=== PATIENT | female | born 1975 | race African-American/Black ===

== ENCOUNTER 2016-03-20 18:23 | Emergency (ER) | payer MEDICAID ==
[~2016-03-20] VITALS: Ht 157.5 cm; Wt 64.4 kg
[~2016-03-20 18:23] MED LIST: AUGMENTIN 875-1 EAC1 ORAL; CLINDAMYCIN HC300 MG ORAL; IBUPROFEN600 MG ORAL; IBUPROFEN800 MG ORAL; KEFLEX500 MG ORAL; NKM; NORCO 5-325 TA1 EACH ORAL; PERCOCET 5-3251 EACH ORAL; ROBAXIN-750750 MG PO
[2016-03-20 18:33] VITALS: BP 127/91
[2016-03-20] MEDS ORDERED: NKM (18:34)
[2016-03-20] MEDS ORDERED: AMOXICILLIN500 MG ORAL (18:57)
[2016-03-20] MEDS ORDERED: PROMETHAZINE-D118 ML ORAL (18:57)
[2016-03-20 19:08] VITALS: BP 127/91
--- NOTE | 2016-03-20 22:20 | Emergency Room Report ---
History of Present Illness General Chief Complaint: Upper Respiratory Illness Source: Patient Present Illness HPI The patient is a 40-year-old female presenting with sore throat, cough, and subjective fevers which all began yesterday. The patient denies any sick contacts or recent travel. Pain is described as an 8/10 dull ache to the throat and does not radiate. Pain worse with swallowing. The patient denies any other symptoms including chills, night sweats, headache, neck pain or stiffness, rash, shortness of breath, chest pain Allergies: Coded Allergies: No Known Allergies (Unverified , 04/03/13) Patient History Past Medical History: see triage record Pertinent Family History: none Last Menstrual Period: 03/16/2015 : 3 Para: 3 Reviewed Nursing Documentation: PMH: Agreed, PSxH: Agreed Nursing Documentation-PMH Past Medical History: No Stated History Review of Systems All Other Systems: negative except mentioned in HPI Physical Exam Vital Signs Date Time Temp Pulse Resp B/P Pulse Ox O2 Delivery O2 Flow Rate FiO2 03/20/16 18:28 98.2 67 16 127/91 100 Room Air Sp02 EP Interpretation: reviewed, normal General Appearance: no apparent distress, alert, GCS 15, non-toxic Head: normocephalic, atraumatic Eyes: bilateral eye PERRL, bilateral eye normal inspection ENT: hearing grossly normal, no angioedema, normal voice, TMs + canals normal, tonsillar swelling, pharyngeal erythema, tonsillar exudate Neck: full range of motion, supple/symm/no masses Respiratory: chest non-tender, lungs clear, normal breath sounds, no wheezing, speaking full sentences Cardiovascular #1: regular rate, rhythm, no edema Gastrointestinal: normal bowel sounds, non tender, soft, non-distended, no guarding, no rebound Musculoskeletal: back normal, gait/station normal, normal range of motion, non- tender Neurologic: alert, oriented x3, responsive, motor strength/tone normal, sensory intact, speech normal Psychiatric: judgement/insight normal, memory normal, mood/affect normal, no suicidal/homicidal ideation Skin: normal color, no rash, warm/dry, well hydrated Lymphatic: adenopathy Medical Decision Making PA Attestation Dr. Hallman is my supervising physician. Patient management was discussed with my supervising physician Diagnostic Impression: Primary Impression: Pharyngitis, acute ER Course The patient is a 40-year-old female presenting with sore throat, cough, and fevers Differential diagnosis include but not limited to pharyngitis, sinusitis, AOM, bronchitis, PNA Physical exam: Vitals within normal limits. Afebrile. No apparent distress HEENT exam: There is bilateral constant edema, erythema, and exudate. Uvula midline. Moist mucous membranes. There is bilateral cervical lymphadenopathy. Lungs are clear to auscultation bilaterally Skin is warm and dry. No rash The patient will be discharged home with a prescription for amoxicillin and is given ER precautions. Patient will followup with primary care Last Vital Signs Date Time Temp Pulse Resp B/P Pulse Ox O2 Delivery O2 Flow Rate FiO2 03/20/16 19:08 67 16 127/91 100 Room Air 03/20/16 18:33 98.2 Status: improved Disposition: HOME, SELF-CARE Condition: Improved Scripts D-Methorphan Hb/Prometh Hcl* (PROMETHAZINE-DM SYRUP*) 118 Ml Syrup 5 ML ORAL Q6H Y for For Cough, #118 ML 0 Refills Prov: MICHEL JUDD 03/20/16 Amoxicillin* (AMOXIL*) 500 Mg Capsule 500 MG ORAL Q12HR, #20 CAP Prov: MICHEL JUDD 03/20/16 Ref[facility] ([facility]P) Patient Instructions: Pharyngitis Additional Instructions: I discussed my findings with the patient. All questions and concerns have been answered. Treatment and medication compliance have been addressed. I advised the patient that they need to follow up with PMD in 3-5 days. Return to ED if pain remains or worsens, cough worsens or remains, you notice blood in your sputum, you notice wheezing, you experience a fever, or if needed for any reason. Patient verbalized understanding of discharge instructions. MICHEL JUDD Mar 20, 2016 22:20
== END 2016-03-20 19:09 | disposition home or self-care (01) ==
LOC: EMR 19:05
DX: J02.9 Acute pharyngitis, unspecified (principal)
CPT/HCPCS: 99284

== ENCOUNTER 2016-04-04 10:11 | Emergency (ER) | payer MEDICAID ==
[~2016-04-04] VITALS: Ht 154.9 cm; Wt 64.9 kg
[~2016-04-04 10:11] MED LIST changes: +AMOXICILLIN500 MG ORAL; +PROMETHAZINE-D118 ML ORAL
[2016-04-04] MEDS ORDERED: Acetaminophen 500mg (ES) tab ORAL ONE (11:30)
[2016-04-04] MEDS ORDERED: guaiFENesin DM 100mg/5ml ORAL ONE (11:30)
[2016-04-04] MEDS ORDERED: ACETAMINOPHEN500 M3 ORAL (12:27)
[2016-04-04] MEDS ORDERED: ROBITUSSIN LON118 ML PO (12:27)
[2016-04-04] MEDS ORDERED: TRAMADOL HCL50 MG ORAL (12:27)
[2016-04-04 13:03] VITALS: BP 103/53
--- NOTE | 2016-04-04 15:58 | Emergency Room Report ---
History of Present Illness General Chief Complaint: Dyspnea/Respdistress Source: Patient Present Illness HPI 4-year-old, producing healthy woman complaining of cough, fevers and chills, malaise and feeling poorly. Nonproductive cough. Sick adolescent also at home for which she's also brought in for evaluation. Patient is moved into a new partner for which she states the conditions are poor and she is concerned that the apartment is causing her illness. She is a part-time smoker. Allergies: Coded Allergies: No Known Allergies (Unverified , 04/03/13) Patient History Past Medical History: see triage record Social History: Reports: smoking Last Menstrual Period: unknown Now: No Immunizations: UTD Nursing Documentation-PMH Past Medical History: No Stated History Review of Systems Constitutional: Reports: malaise, weakness Respiratory: Reports: cough, Denies: shortness of breath Genitourinary: Denies: discharge All Other Systems: negative except mentioned in HPI Physical Exam Vital Signs Date Time Temp Pulse Resp B/P Pulse Ox O2 Delivery O2 Flow Rate FiO2 04/04/16 10:31 98.1 56 16 120/75 97 Room Air Sp02 EP Interpretation: reviewed, normal General Appearance: no apparent distress, alert, GCS 15, thin Head: atraumatic Eyes: bilateral eye normal inspection ENT: normal ENT inspection, hearing grossly normal, normal voice Neck: normal inspection, full range of motion, supple, no bony tend Respiratory: normal inspection, lungs clear, normal breath sounds, no respiratory distress, no retraction, no wheezing Cardiovascular #1: regular rate, rhythm, no edema Gastrointestinal: normal inspection, normal bowel sounds, non tender, soft, no guarding, no hernia Genitourinary: no CVA tenderness Musculoskeletal: normal inspection, back normal, normal range of motion Neurologic: normal inspection, alert, responsive, speech normal Psychiatric: normal inspection, judgement/insight normal, mood/affect normal Skin: normal inspection, normal color, no rash Medical Decision Making Diagnostic Impression: Primary Impression: Upper respiratory infection, acute Additional Impression: Upper respiratory infection ER Course Patient is overall well-appearing, though she does appear to be tired and is likely suffering from URI. Chest x-ray is unremarkable. Vitals are stable in the ER. And her son is also well-appearing. He she'll be given medications for cough as well as fever and malaise to include Tylenol and Robitussin. To followup with primary doctor and recommended to abstain from smoking. Chest X-Ray Diagnostic Results Time: 12:00 EP Interpretation: No Findings: no consolidation, no effusion, no pneumothorax, no acute cardiopulmonary disease Number of Views: 1 Reevaluation Time: 12:30 Last Vital Signs Date Time Temp Pulse Resp B/P Pulse Ox O2 Delivery O2 Flow Rate FiO2 04/04/16 13:03 86 18 103/53 98 Room Air 04/04/16 13:02 98.0 Status: improved Disposition: HOME, SELF-CARE Condition: Stable Scripts Acetaminophen* (ACETAMINOPHEN EXTRA STRENGTH*) 500 Mg Tablet 1000 MG ORAL Q8H Y for Fever/Headache/Mild Pain, #30 TAB Prov: Salvador Tomas MD 04/04/16 Dextromethorphan Hbr/Chlor-Mal (ROBITUSSIN LONG-ACTING LIQ) 118 Ml Liquid 118 ML PO EVERY 6 HOURS for 10 Days, #100 ML Prov: Salvador Tomas MD 04/04/16 Tramadol Hcl* (ULTRAM*) 50 Mg Tablet 50 MG ORAL Q6H Y for For Pain, #15 TAB 0 Refills Prov: Salvador Tomas MD 04/04/16 Patient Instructions: Upper Respiratory Infection, Adult Additional Instructions: Please rest, take medications as prescribed, followup with primary DrRoland, please avoid smoking. Salvador Tomas MD Apr 04, 2016 15:58
--- NOTE | 2016-04-05 07:56 | Diagnostic Imaging Report ---
Indication: Dyspnea Comparison: 11/18/09 2 views of the chest obtained. Findings: Cardiomediastinal silhouette and pulmonary vascularity are within normal limits for age. The diaphragmatic contour is smooth and costophrenic angles are sharp. No pleural effusions are identified. The bones are unremarkable. Impression: No acute disease
== END 2016-04-04 13:09 | disposition home or self-care (01) ==
LOC: EMR 11:20
DX: J06.9 Acute upper respiratory infection, unspecified (principal); F17.200 Nicotine dependence, unspecified, uncomplicated
CPT/HCPCS: 71020; 99284

== ENCOUNTER 2016-05-19 20:58 | Emergency (ER) | payer MEDICAID ==
[~2016-05-19] VITALS: Ht 162.6 cm; Wt 63.5 kg
[~2016-05-19 20:58] MED LIST changes: +ACETAMINOPHEN500 M3 ORAL; +ROBITUSSIN LON118 ML PO; +TRAMADOL HCL50 MG ORAL
[2016-05-19 21:00] VITALS: BP 153/87
--- NOTE | 2016-05-19 21:17 | Emergency Room Report ---
History of Present Illness General Chief Complaint: Alcohol Intoxication Source: Patient, EMS Present Illness HPI Is a 40-year-old female brought in by EMS for altered mental status. She was found sleeping on somebody's lawn. She told EMS that she's been drinking. She told me that she was using PCP. She did not know what happened. There is no trauma. Patient denies suicidal thought homicidal thought. No other complaint. Allergies: Coded Allergies: No Known Allergies (Unverified , 04/03/13) Patient History Past Medical History: see triage record, old chart reviewed Past Surgical History: none Pertinent Family History: none Social History: Reports: alcohol use, drug use Last Menstrual Period: Unknown Now: No Immunizations: other Reviewed Nursing Documentation: PMH: Agreed, PSxH: Agreed Nursing Documentation-PMH Past Medical History: No Stated History Review of Systems Eye: Denies: blurred vision, eye pain ENT: Denies: ear pain, nose congestion, throat swelling Respiratory: Denies: cough, shortness of breath Cardiovascular: Denies: chest pain, palpitations Gastrointestinal: Denies: abdominal pain, diarrhea, nausea, vomiting Musculoskeletal: Denies: back pain, joint pain Skin: Denies: rash Neurological: Denies: headache, numbness Endocrine: Denies: increased thirst, increased urine Hematologic/Lymphatic: Denies: easy bruising All Other Systems: negative except mentioned in HPI Physical Exam Vital Signs Date Time Temp Pulse Resp B/P Pulse Ox O2 Delivery O2 Flow Rate FiO2 05/19/16 20:54 98.1 72 18 160/100 98 Room Air vitals with hypertension Sp02 EP Interpretation: reviewed, normal General Appearance: well appearing, no apparent distress, alert Head: normocephalic, atraumatic Eyes: bilateral eye EOMI, bilateral eye PERRL ENT: hearing grossly normal, normal pharynx Neck: full range of motion, supple, no meningismus Respiratory: chest non-tender, lungs clear, normal breath sounds Cardiovascular #1: regular rate, rhythm, no murmur Gastrointestinal: normal bowel sounds, non tender, no mass, no organomegaly, no bruit, non-distended Musculoskeletal: back normal, gait/station normal, normal range of motion Psychiatric: mood/affect normal Skin: warm/dry Medical Decision Making Diagnostic Impression: Primary Impression: Acute alcoholic intoxication Qualified Codes: F10.120 - Alcohol abuse with intoxication, uncomplicated Additional Impression: PCP abuse ER Course Patient present with altered mental status secondary to alcohol and drug abuse. She's now awake and walking around without any difficulty. Speech is clear. We'll discharge home to Last Vital Signs Date Time Temp Pulse Resp B/P Pulse Ox O2 Delivery O2 Flow Rate FiO2 05/19/16 20:54 98.1 72 18 160/100 98 Room Air Status: improved Disposition: HOME, SELF-CARE Condition: Stable Additional Instructions: Followup with your Dr. in 7 days. Abstain from drugs and alcohol. Return if symptom worsen. ROSENDA SIDDIQI M.D. May 19, 2016 21:17
[2016-05-19 21:20] VITALS: BP 160/100
== END 2016-05-19 21:20 | disposition home or self-care (01) ==
LOC: EDBD 20:58 → EMR 21:19
DX: F10.120 Alcohol abuse with intoxication, uncomplicated (principal); F16.10 Hallucinogen abuse, uncomplicated
CPT/HCPCS: 99283

== ENCOUNTER 2017-10-07 00:06 | Emergency (ER) | payer MEDICAID ==
[~2017-10-07] VITALS: Ht 154.9 cm; Wt 66.2 kg
[2017-10-07 00:26] VITALS: BP 129/91
[2017-10-07] MEDS ORDERED: BACTRIM DS TAB1 EAC1 ORAL (00:27)
[2017-10-07] MEDS ORDERED: MUPIROCIN22 GM TOPIC (00:27)
--- NOTE | 2017-10-07 00:27 | Emergency Room Report ---
History of Present Illness General Chief Complaint: Skin Rash/Abscess Source: Patient Present Illness HPI Is a 41-year-old female with a history of alcohol and PCP abuse. She presents with chief complaint of a rash and questionable bug bite for a week. No drainage. Very itching. No nausea no vomiting. No fever chills. Scratching made it worse. Denies any other complaint. No skin popping. No IV drug use. Allergies: Coded Allergies: No Known Allergies (Unverified , 04/03/13) Patient History Past Medical History: see triage record, old chart reviewed Past Surgical History: other Pertinent Family History: none Social History: Reports: alcohol use, drug use Last Menstrual Period: UNK Now: No Immunizations: other Reviewed Nursing Documentation: PMH: Agreed; PSxH: Agreed Nursing Documentation-PMH Past Medical History: No Stated History Review of Systems Eye: Denies: eye pain, blurred vision ENT: Denies: ear pain, nose congestion, throat swelling Respiratory: Denies: cough, shortness of breath Cardiovascular: Denies: chest pain, palpitations Gastrointestinal: Denies: abdominal pain, diarrhea, nausea, vomiting Musculoskeletal: Denies: back pain, joint pain Skin: Reports: rash Neurological: Denies: headache, numbness Endocrine: Denies: increased thirst, increased urine Hematologic/Lymphatic: Denies: easy bruising All Other Systems: negative except mentioned in HPI Physical Exam Vital Signs Date Time Temp Pulse Resp B/P (MAP) Pulse Ox O2 Delivery O2 Flow Rate FiO2 10/07/17 00:07 98.1 88 16 129/91 95 Room Air 98.1 vitals normal Sp02 EP Interpretation: reviewed, normal General Appearance: well appearing, no apparent distress, alert Head: normocephalic, atraumatic Eyes: bilateral eye PERRL, bilateral eye EOMI ENT: hearing grossly normal, normal pharynx Neck: full range of motion, supple, no meningismus Respiratory: chest non-tender, lungs clear, normal breath sounds Cardiovascular #1: regular rate, rhythm, no murmur Gastrointestinal: normal bowel sounds, non tender, no mass, no organomegaly, no bruit, non-distended Musculoskeletal: back normal, gait/station normal, normal range of motion Neurologic: alert, oriented x3, responsive Psychiatric: mood/affect normal Skin: warm/dry, rash - Scattered area of erythema central ulceration. Surrounding erythema. No abscess. Medical Decision Making Diagnostic Impression: Primary Impression: Cellulitis, unspecified Qualified Codes: L03.90 - Cellulitis, unspecified Additional Impression: Drug abuse ER Course Patient with cellulitis. No abscess. No necrotizing fasciitis. Was likely MRSA. We'll discharge home. Last Vital Signs Date Time Temp Pulse Resp B/P (MAP) Pulse Ox O2 Delivery O2 Flow Rate FiO2 10/07/17 00:07 98.1 88 16 129/91 95 Room Air 98.1 Status: improved Disposition: HOME, SELF-CARE Condition: Stable Scripts Mupirocin* (MUPIROCIN*) 22 Gm Oint...g. 1 APPLIC TOPIC THREE TIMES A DAY, #22 GM Prov: ROSENDA SIDDIQI M.D. 10/07/17 Trimethoprim/Sulfamethoxazole 160/800* (BACTRIM DS TABLET*) 1 Each Tablet 1 TAB ORAL Q12H, #14 TAB 0 Refills Prov: ROSENDA SIDDIQI M.D. 10/07/17 Referrals: [facility] (PCP) Additional Instructions: Clean area first with hydrogen peroxide. Then apply antibiotic ointment. Follow-up your DrRoland in 2-3 days for recheck. Return if symptom worsen. ROSENDA SIDDIQI M.D. Oct 07, 2017 00:27
[2017-10-07] MEDS ORDERED: Bactrim-DS 1 tab ORAL ONE (00:30)
[2017-10-07 00:37] VITALS: BP 129/91
== END 2017-10-07 00:39 | disposition home or self-care (01) ==
LOC: EMR 00:22
DX: L03.90 Cellulitis, unspecified (principal)
CPT/HCPCS: 99283

== ENCOUNTER 2018-09-28 11:32 | Emergency (ER) | payer MEDICAID ==
[~2018-09-28] VITALS: Ht 154.9 cm; Wt 70.3 kg
[~2018-09-28 11:32] MED LIST changes: +BACTRIM DS TAB1 EAC1 ORAL; +MUPIROCIN22 GM TOPIC
[2018-09-28 11:36] VITALS: BP 103/73
[2018-09-28] MEDS ORDERED: NKM (11:40)
--- NOTE | 2018-09-28 11:49 | NUR ---
ED Nurse Note: pt walked in to ED with family member due to swelling on left wrist and blister on face after she took metronidazole yesterday. denies any sob or throat irritation. per pt, she in on antibiotic for UTI. and had that meds before. pt also c/o tingling sensation on left arm for couple days. no recent injury. AAO x4. respirations even and non-labored noted. will wait for the further order.
[2018-09-28] MEDS ORDERED: MEDROL DOSEPAK4 MG ORAL (12:05)
[2018-09-28] MEDS ORDERED: CEPHALEXIN500 MG ORAL (12:05)
[2018-09-28] MEDS ORDERED: BENADRYL25 MG ORAL (12:05)
[2018-09-28] MEDS ORDERED: Cephalexin 500mg cap ORAL ONE (12:15)
[2018-09-28 12:17] VITALS: BP 103/73
--- NOTE | 2018-09-28 12:18 | NUR ---
ER DISCHARGE NOTE: Patient is cleared to be discharged per ERMD with family member, pt is aox4, on room air, with stable vital signs. pt was given dc and prescription instructions, pt was able to verbalize understanding, pt id band removed without complications. pt is able to ambulate with steady gait. pt took all belongings.
--- NOTE | 2018-09-28 13:02 | Emergency Room Report ---
History of Present Illness General Chief Complaint: Skin Rash/Abscess Source: Patient Present Illness HPI Patient presents with complaints of several areas of skin markings more specifically left forearm Left upper neck area patient reports that the area is very itchy in nature Denies any fevers or chills denies any recent travel denies any fevers denies any vomiting or diarrhea Denies any focal weakness denies any headache or photophobia Symptoms ongoing for the past several days and she felt increased itching sensation Allergies: Coded Allergies: METRONIDAZOLE (Verified Allergy, Unknown, 09/28/18) Patient History Past Medical History: see triage record Last Menstrual Period: 09/05/18 Reviewed Nursing Documentation: PMH: Agreed; PSxH: Agreed Nursing Documentation-PMH Past Medical History: No Stated History Review of Systems All Other Systems: negative except mentioned in HPI Physical Exam Vital Signs Date Time Temp Pulse Resp B/P (MAP) Pulse Ox O2 Delivery O2 Flow Rate FiO2 09/28/18 11:36 98.4 62 18 103/73 (83) 98 Room Air Sp02 EP Interpretation: reviewed, normal General Appearance: well appearing, no apparent distress Head: normocephalic, atraumatic Eyes: bilateral eye PERRL, bilateral eye EOMI ENT: hearing grossly normal, normal pharynx, TMs + canals normal, uvula midline Neck: supple Respiratory: lungs clear, normal breath sounds Cardiovascular #1: regular rate, rhythm Gastrointestinal: non tender, soft Musculoskeletal: normal inspection Neurologic: alert, oriented x3, responsive Skin: other - Several areas more specifically left forearm, left upper neck area with a specific mild erythema and raised urticarial area. No obvious fluctuance no dermatomal spread Lymphatic: no adenopathy Medical Decision Making Diagnostic Impression: Primary Impression: insect bite Additional Impression: cellulitis ER Course Areas in question appears to be consistent with insect bites questionable localized area of cellulitis No obvious abscess No obvious shingle presentation and patient will have initial conservative outpatient trial Last Vital Signs Date Time Temp Pulse Resp B/P (MAP) Pulse Ox O2 Delivery O2 Flow Rate FiO2 09/28/18 12:17 98.4 62 18 103/73 98 Room Air Status: improved Disposition: HOME, SELF-CARE Condition: Improved Scripts Diphenhydramine Hcl* (BENADRYL*) 25 Mg Capsule 25 MG ORAL Q8HR PRN for Itching for 7 Days, CAP Prov: Fermin Cruz DO 09/28/18 Methylprednisolone (Methylprednisolone*) 4MG Dspk 4 MG ORAL DIRECTED for 6 Days, #21 EA 0 Refills Day 1: Two tablets before breakfast, one after lunch, one after dinner, and two at bedtime. If started late in the day, take all six tablets at once or divide into two or three doses, unless otherwise directed by prescriber. Day 2: One tablet before breakfast, one after lunch, one after dinner, and two at bedtime Day 3: One tablet before breakfast, one after lunch, one after dinner, and one at bedtime Day 4: One tablet before breakfast, one after lunch, and one at bedtime Day 5: One tablet before breakfast and one at bedtime Day 6: One tablet before breakfast Prov: Fermin Cruz DO 09/28/18 Cephalexin* (KEFLEX*) 500 Mg Capsule 500 MG ORAL EVERY 6 HOURS for 5 Days, CAP Prov: Fermin Cruz DO 09/28/18 Ref[facility]: [facility]) [facility]. [facility] Patient Instructions: Cellulitis, [id number], Insect Bite, [id number] Additional Instructions: Patient is provided with the discharge instructions notified to follow up with primary doctor in the next 2-3 days otherwise return to the er with any worsening symptoms. Please note that this report is being documented using [employer] technology. This can lead to erroneous entry secondary to incorrect interpretation by the dictating instrument. Fermin Cruz DO Sep 28, 2018 13:02
== END 2018-09-28 12:18 | disposition home or self-care (01) ==
LOC: EMR 11:49
DX: S50.862A Insect bite (nonvenomous) of left forearm, initial encounter (principal); S10.96XA Insect bite of unspecified part of neck, initial encounter; L03.90 Cellulitis, unspecified; Z88.8 Allergy status to other drugs, medicaments and biological substances; W57.XXXA Bitten or stung by nonvenomous insect and other nonvenomous arthropods, initial encounter; Y92.9 Unspecified place or not applicable
CPT/HCPCS: 99282

== ENCOUNTER 2018-11-07 14:08 | Emergency (ER) | payer MEDICAID ==
[~2018-11-07] VITALS: Ht 157.5 cm; Wt 69.9 kg
[~2018-11-07 14:08] MED LIST changes: +BENADRYL25 MG ORAL; +CEPHALEXIN500 MG ORAL; +MEDROL DOSEPAK4 MG ORAL
--- NOTE | 2018-11-07 15:41 | Emergency Room Report ---
History of Present Illness General Chief Complaint: Skin Rash/Abscess Source: Patient Present Illness HPI 42-year-old female presents to the emergency department complaining of 4 out of 10 severity burning/itchy rash with erythema, swelling and warmth scattered on the posterior thighs bilaterally as well as in her back. Patient reports she has been having intermittent symptoms x1 month she was previously evaluated and placed on Keflex and steroid taper with no relief. Patient denies fevers or chills she reports no relief with Benadryl either. Patient reports she has a primary care appointment next week. Pt. denies fevers, chills or swollen tender lymph nodes. Denies lesions/rashes elsewhere on the body. Denies new medications or body washes or creams. Denies swelling of the lips, tongue , throat or airway. Denies wheezing, or shortness of breath. Denies recent travel , recent illness or ill contacts. Denies blisters, oral lesions, or sloughing of the skin. reports hx of cocaine and THC use. denies IVDU. Reports being under significant stress, in transition of housing, and recent of her son last year. Pt. is also c/o persistent muscle tightness in the right hamstring x months. She denies appreciable trauma or fall. Allergies: Coded Allergies: No Known Allergies (Unverified , 11/07/18) Patient History Past Medical History: see triage record Past Surgical History: none Pertinent Family History: none Now: No Reviewed Nursing Documentation: PMH: Agreed; PSxH: Agreed Nursing Documentation-PMH Past Medical History: No Stated History Review of Systems All Other Systems: negative except mentioned in HPI Physical Exam Vital Signs Date Time Temp Pulse Resp B/P (MAP) Pulse Ox O2 Delivery O2 Flow Rate FiO2 11/07/18 14:27 97.5 71 19 112/82 (92) 98 Room Air Sp02 EP Interpretation: reviewed, normal General Appearance: no apparent distress, alert, GCS 15, non-toxic Head: normocephalic, atraumatic Eyes: bilateral eye normal inspection, bilateral eye PERRL ENT: hearing grossly normal, no angioedema, normal voice Neck: full range of motion Respiratory: chest non-tender, lungs clear, normal breath sounds, no wheezing, speaking full sentences Cardiovascular #1: regular rate, rhythm Musculoskeletal: back normal, gait/station normal, normal range of motion, non- tender Neurologic: alert, oriented x3, responsive, motor strength/tone normal, sensory intact, normal gait, speech normal, grossly normal Psychiatric: judgement/insight normal Skin: rash - Pt. with three erythematous plaques that are indurated one on each posterior thigh and on on the right upper back. excoriations noted. No blisters or vessicles. appearance of localized allergic reaction. no obivious skin lesions. no crusting or d/c. some induration palpated. Lymphatic: no adenopathy Medical Decision Making PA Attestation Dr. Hallman Is my supervising Physician whom patient management has been discussed with. Diagnostic Impression: Primary Impression: Rash and other nonspecific skin eruption Additional Impression: CELLULITIS, UNSPECIFIED ER Course 42-year-old female presents to the emergency department complaining of 4 out of 10 severity burning/itchy rash with erythema, swelling and warmth scattered on the posterior thighs bilaterally as well as in her back. Patient reports she has been having intermittent symptoms x1 month she was previously evaluated and placed on Keflex and steroid taper with no relief. Patient denies fevers or chills she reports no relief with Benadryl either. Patient reports she has a primary care appointment next week. Pt. denies fevers, chills or swollen tender lymph nodes. Denies lesions/rashes elsewhere on the body. Denies new medications or body washes or creams. Denies swelling of the lips, tongue , throat or airway. Denies wheezing, or shortness of breath. Denies recent travel , recent illness or ill contacts. Denies blisters, oral lesions, or sloughing of the skin. reports hx of cocaine and THC use. denies IVDU. Reports being under significant stress, in transition of housing, and recent of her son last year. Ddx considered but are not limited to cellulitis, scabies, shingles, varicella, dermatitis, urticaria, eczema, tinea, viral exanthem, SJS Vital signs: are WNL, pt. is afebrile H&PE are most consistent with localized inflammatory reactions with secondary cellulitis of the posterior thighs bilaterally and on the upper right side of the back. No evidence to suggest sepsis, impending airway compromise or anaphylaxis. ORDERS: none required at this time, the diagnosis is clinical ED INTERVENTIONS: None required at this time. -I do not identify an emergent condition at this time. With current presentation , pt. is stable for close outpatient follow up and conservative treatment. D/ w pt. to return promptly to ED with worsening or new symptoms.- Pt. verbalizes' understanding and agreement with proposed treatment plan.proposed treatment plan. DISCHARGE: At this time pt. is stable for d/c to home. Will provide printed patient care instructions, and any necessary prescriptions. Care plan and follow up instructions have been discussed with the patient prior to discharge. Last Vital Signs Date Time Temp Pulse Resp B/P (MAP) Pulse Ox O2 Delivery O2 Flow Rate FiO2 11/07/18 14:27 97.5 71 19 112/82 (92) 98 Room Air Disposition: HOME, SELF-CARE Condition: Stable Scripts Diclofenac Sodium (VOLTAREN) 100 Gm Gel..gram. 1 APPLIC TP Q6HR, #100 GM Prov: Kayce Dong 11/07/18 Cetirizine Hcl* (ZYRTEC*) 10 Mg Tablet 10 MG ORAL DAILY, #30 TAB 0 Refills Prov: Kayce Dong 11/07/18 Hydrocortisone 2% Cream (ANTI-ITCH 2% CREAM) Y Cr 1 APPLIC TP Q6HR, #28.3 GM Prov: Kayce Dong 11/07/18 Trimethoprim/Sulfamethoxazole 160/800* (BACTRIM DS TABLET*) 1 Each Tablet 1 TAB ORAL TWICE A DAY for 7 Days, #14 TAB Prov: Kayce Dong 11/07/18 Patient Instructions: Cellulitis, [id number], Rash, [id number] Additional Instructions: Take medications as directed. Follow up with a Primary Care Provider in 3-5 days for DERMATOLOGY REFERRAL , even if your symptoms have resolved. --Please review list of primary care clinics, if you do not already have a primary care provider Return sooner to ED if new symptoms occur, or current symptoms become worse. - Please note that this Emergency Department Report was dictated using [employer] technology software, occasionally this can lead to erroneous entry secondary to interpretation by the dictation equipment. Kayce Dong Nov 07, 2018 15:41
[2018-11-07 15:53] VITALS: BP 112/82
--- NOTE | 2018-11-07 15:54 | NUR ---
ED Nurse Note:pt. came with unknown rash on her back
[2018-11-07] MEDS ORDERED: ZYRTEC10 MG ORAL (16:01)
[2018-11-07] MEDS ORDERED: BACTRIM DS TAB1 EAC1 ORAL (16:01)
[2018-11-07] MEDS ORDERED: ANTI-ITCH28 G1 TP (16:01)
--- NOTE | 2018-11-07 16:10 | NUR ---
ER DISCHARGE NOTE: Patient is cleared to be discharged per ERMD, pt is aox4, on room air, with stable vital signs. pt was given dc and prescription instructions, pt was able to verbalize understanding, pt is able to ambulate with steady gait. pt took all belongings.
[2018-11-07] MEDS ORDERED: VOLTAREN100 G1 TP (16:17)
[2018-11-07 16:41] VITALS: BP 112/82
== END 2018-11-07 16:40 | disposition home or self-care (01) ==
LOC: EMR 15:50
DX: L03.90 Cellulitis, unspecified (principal); R21 Rash and other nonspecific skin eruption
CPT/HCPCS: 99282

== ENCOUNTER 2018-11-11 19:49 | Emergency (ER) | payer MEDICAID ==
[~2018-11-11] VITALS: Ht 157.5 cm; Wt 69.9 kg
[~2018-11-11 19:49] MED LIST changes: +ANTI-ITCH28 G1 TP; +VOLTAREN100 G1 TP; +ZYRTEC10 MG ORAL
[2018-11-11 20:00] VITALS: BP 124/78
--- NOTE | 2018-11-11 20:00 | NUR ---
ED Nurse Note: Patient presents with complaints of cellultitis of the legs and was given an RX for batrim but needs another because it was misplaced. [id number]. vss
[2018-11-11] MEDS ORDERED: BACTRIM DS TAB1 EAC1 ORAL ×2 (20:30→20:34)
[2018-11-11 20:39] VITALS: BP 124/78
--- NOTE | 2018-11-11 20:39 | NUR ---
Note undone in EDM - 11/11/18 at 2040 by LCRISOSTOM ER DISCHARGE NOTE: Patient is cleared to be discharged per ERMD, pt is aox4, on room air, with stable vital signs. accompanied by parent. applied sling; pt states understanding of proper care of injury. pt was given dc and prescription instructions, pt was able to verbalize understanding, pt id band removed. pt is able to ambulate with steady gait. pt took all belongings.
--- NOTE | 2018-11-11 20:40 | NUR ---
ER DISCHARGE NOTE: Patient is cleared to be discharged per ERMD, pt is aox4, on room air, with stable vital signs. pt was given dc and prescription instructions, pt was able to verbalize understanding, pt id band removed. pt is able to ambulate with steady gait. pt took all belongings.
--- NOTE | 2018-11-13 07:24 | Emergency Room Report ---
History of Present Illness General Chief Complaint: Medication Refill Source: Patient Present Illness HPI 42-year-old female presents ED for evaluation. Patient is here for medication refill. Was recently seen in ED and noted to have cellulitis on the legs. Was prescribed Bactrim but states she lost the prescription. Is here for refill of her medication. Denies any pain. Denies any fevers or chills. No other aggravating relieving factors. No other associated symptoms Allergies: Coded Allergies: No Known Allergies (Unverified , 11/07/18) Patient History Past Medical History: none Past Surgical History: none Pertinent Family History: none Social History: Denies: smoking, alcohol use, drug use Last Menstrual Period: 11/02/18 Now: No : 4 Para: 3 Immunizations: UTD Reviewed Nursing Documentation: PMH: Agreed; PSxH: Agreed Review of Systems All Other Systems: negative except mentioned in HPI Physical Exam Vital Signs Date Time Temp Pulse Resp B/P (MAP) Pulse Ox O2 Delivery O2 Flow Rate FiO2 11/11/18 19:58 97.7 54 16 124/78 (93) 98 Room Air Sp02 EP Interpretation: reviewed, normal General Appearance: no apparent distress, alert, GCS 15, non-toxic Head: normocephalic, atraumatic Eyes: bilateral eye normal inspection, bilateral eye PERRL ENT: hearing grossly normal, normal pharynx, no angioedema, normal voice Neck: full range of motion, supple/symm/no masses Respiratory: chest non-tender, lungs clear, normal breath sounds, speaking full sentences Cardiovascular #1: regular rate, rhythm, no edema Cardiovascular #2: 2+ carotid (R), 2+ carotid (L), 2+ radial (R), 2+ radial (L) , 2+ dorsalis pedis (R), 2+ dorsalis pedis (L) Gastrointestinal: normal bowel sounds, non tender, soft, non-distended, no guarding, no rebound Rectal: deferred Genitourinary: normal inspection, no CVA tenderness Musculoskeletal: back normal, gait/station normal, normal range of motion, non- tender Neurologic: alert, oriented x3, responsive, motor strength/tone normal, sensory intact, speech normal Psychiatric: judgement/insight normal, memory normal, mood/affect normal, no suicidal/homicidal ideation Reflexes: 3+ bicep (R), 3+ bicep (L), 3+ tricep (R), 3+ tricep (L), 3+ knee (R) , 3+ knee (L) Skin: normal color Lymphatic: no adenopathy Medical Decision Making Diagnostic Impression: Primary Impression: Encounter for medication refill ER Course 42-year-old female presents to ED refill of her medication. recently prescribed bactrim hospital course: After initial history and physical, reviewed EMR. Patient was seen here recently and prescribed Bactrim. I agreed to provide her with refill of her medication. safe for discharge for close outpatient follow-up Diagnosis-encounter for medication refill Stable and discharged to home with prescription for Bactrim. Followup with PMD. Return to ED if symptoms recur or worsen Last Vital Signs Date Time Temp Pulse Resp B/P (MAP) Pulse Ox O2 Delivery O2 Flow Rate FiO2 11/11/18 20:39 97.7 60 16 124/78 98 Room Air Status: improved Disposition: HOME, SELF-CARE Condition: Stable Scripts Trimethoprim/Sulfamethoxazole 160/800* (BACTRIM DS TABLET*) 1 Each Tablet 1 TAB ORAL TWICE A DAY for 7 Days, #14 TAB Prov: Josue Hart MD 11/11/18 Referrals: [facility] ([facility]P) [facility] Patient Instructions: Medicine Refill at the Emergency Department Josue Hart MD Nov 13, 2018 07:24
== END 2018-11-11 20:40 | disposition home or self-care (01) ==
LOC: EMR 20:14
DX: L03.116 Cellulitis of left lower limb (principal); L03.115 Cellulitis of right lower limb; Z76.0 Encounter for issue of repeat prescription
CPT/HCPCS: 99282

== ENCOUNTER 2019-11-03 20:21 | Emergency (ER) | payer MEDICAID ==
[~2019-11-03] VITALS: Ht 157.5 cm; Wt 72.6 kg
[2019-11-03 20:30] VITALS: BP 116/78
--- NOTE | 2019-11-03 21:55 | Diagnostic Imaging Report ---
EXAM: CT Neck Without Intravenous Contrast CLINICAL HISTORY: Evaluate for foreign body. TECHNIQUE: Axial computed tomography images of the neck without intravenous contrast. CTDI is 14.6 mGy and DLP is 463.6 mGy-cm. One or more of the following dose reduction techniques were used: automated exposure control, adjustment of the mA and/or kV according to patient size, use of iterative reconstruction technique. COMPARISON: No previous studies. FINDINGS: Oropharynx: Unremarkable. No significant tonsillar enlargement. Hypopharynx: See below. Larynx: Valleculae and piriform sinuses are unremarkable. Normal epiglottis. Trachea: Visualized trachea is unremarkable. Retropharyngeal space: Unremarkable. Submandibular/parotid glands: Parotid glands and the submandibular glands are unremarkable. Thyroid: The thyroid gland is grossly unremarkable. Bones/joints: Visualized calvarium is unremarkable. There is straightening and reversal of the curvature of the cervical spine. Degenerative disc disease most notably at the C5-6 level. No acute fracture. Soft tissues: No radiopaque foreign bodies detected. Vasculature: No acute findings. Lymph nodes: No pathologic lymphadenopathy is noted. Mastoid air cells: Mastoid air cells are well pneumatized. Lung apices: Minimal subsegmental atelectasis posteriorly at the lung apices. Other findings: The airways patent. Supra clavicular regions are unremarkable. IMPRESSION: 1. No radiopaque foreign bodies detected. 2. No significant focal abnormality noted. 3. The airways patent. The region of the vallecula and piriform sinuses are unremarkable per 4. Proximal trachea is unremarkable.
[2019-11-03 22:10] VITALS: BP 116/85
--- NOTE | 2019-11-05 07:33 | Emergency Room Report ---
History of Present Illness General Chief Complaint: Sore Throat Source: Patient Present Illness HPI 43-year-old female presents with throat pain. States that tonight she was eating chicken and felt a sharp bone in her throat. Patient pulled out a bone which appeared sharp but is concerned there was another bone stuck in her throat. Pain is dull, 4 out of 10, nonradiating. States she did cough a few times. Denies nausea or vomiting. No other aggravating relieving factors. 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 Patient History Past Medical History: none Past Surgical History: none Pertinent Family History: none Social History: Denies: smoking, alcohol use, drug use Last Menstrual Period: 10/2019 Now: No Immunizations: UTD Reviewed Nursing Documentation: PMH: Agreed; PSxH: Agreed Nursing Documentation-PMH Past Medical History: No Stated History Review of Systems All Other Systems: negative except mentioned in HPI Physical Exam Vital Signs Date Time Temp Pulse Resp B/P (MAP) Pulse Ox O2 Delivery O2 Flow Rate FiO2 11/03/19 20:26 98.4 73 16 116/78 (91) 98 Room Air Sp02 EP Interpretation: reviewed, normal General Appearance: no apparent distress, alert, GCS 15, non-toxic Head: normocephalic, atraumatic Eyes: bilateral eye normal inspection, bilateral eye PERRL ENT: hearing grossly normal, normal pharynx, no angioedema, normal voice Neck: full range of motion, supple/symm/no masses Respiratory: chest non-tender, lungs clear, normal breath sounds, speaking full sentences Cardiovascular #1: regular rate, rhythm, no edema Cardiovascular #2: 2+ carotid (R), 2+ carotid (L), 2+ radial (R), 2+ radial (L), 2+ dorsalis pedis (R), 2+ dorsalis pedis (L) Gastrointestinal: normal bowel sounds, non tender, soft, non-distended, no guarding, no rebound Rectal: deferred Genitourinary: normal inspection, no CVA tenderness Musculoskeletal: back normal, normal range of motion, gait/station normal, non- tender Neurologic: alert, motor strength/tone normal, oriented x3, sensory intact, responsive, speech normal Psychiatric: judgement/insight normal, memory normal, mood/affect normal, no suicidal/homicidal ideation Reflexes: 3+ bicep (R), 3+ bicep (L), 3+ tricep (R), 3+ tricep (L), 3+ knee (R), 3+ knee (L) Lymphatic: no adenopathy Medical Decision Making Diagnostic Impression: Primary Impression: Foreign body sensation in throat ER Course Hospital Course 43-year-old female presents with throat discomfort after swallowing chicken bone Differential diagnoses include: perforation, obstruction, pharyngitis, Clinical course Patient placed on stretcher. After initial history, physical exam reveals a female in no acute distress. Bilateral TM unremarkable. There is no pharyngeal erythema. No stridor. Patient speaking comfortably in full sentences. CT neck shows no evidence of foreign body or perforation. Discussed findings with patient. Reassurance given. Likely sensation noted from chicken bone scratching the throat. Self-limited and will resolve. No further intervention required. Safe for discharge with close outpatient follow-up. Diagnosis -foreign body sensation in throat Stable and discharged home. Instructed to followup with PMD. return to ED if symptoms recur or worsen CT/MRI/US Diagnostic Results CT/MRI/US Diagnostic Results : Imaging Test Ordered: CT neck Impression EXAM: CT Neck Without Intravenous Contrast CLINICAL HISTORY: Evaluate for foreign body. TECHNIQUE: Axial computed tomography images of the neck without intravenous contrast. CTDI is 14.6 mGy and DLP is 463.6 mGy-cm. One or more of the following dose reduction techniques were used: automated exposure control, adjustment of the mA and/or kV according to patient size, use of iterative reconstruction technique. COMPARISON: No previous studies. FINDINGS: Oropharynx: Unremarkable. No significant tonsillar enlargement. Hypopharynx: See below. Larynx: Valleculae and piriform sinuses are unremarkable. Normal epiglottis. Trachea: Visualized trachea is unremarkable. Retropharyngeal space: Unremarkable. Submandibular/parotid glands: Parotid glands and the submandibular glands are unremarkable. Thyroid: The thyroid gland is grossly unremarkable. Bones/joints: Visualized calvarium is unremarkable. There is straightening and reversal of the curvature of the cervical spine. Degenerative disc disease most notably at the C5-6 level. No acute fracture. Soft tissues: No radiopaque foreign bodies detected. Vasculature: No acute findings. Lymph nodes: No pathologic lymphadenopathy is noted. Mastoid air cells: Mastoid air cells are well pneumatized. Lung apices: Minimal subsegmental atelectasis posteriorly at the lung apices. Other findings: The airways patent. Supra clavicular regions are unremarkable. IMPRESSION: 1. No radiopaque foreign bodies detected. 2. No significant focal abnormality noted. 3. The airways patent. The region of the vallecula and piriform sinuses are unremarkable per 4. Proximal trachea is unremarkable. Last Vital Signs Date Time Temp Pulse Resp B/P (MAP) Pulse Ox O2 Delivery O2 Flow Rate FiO2 11/03/19 22:10 98.4 68 16 116/85 98 Room Air Status: improved Disposition: HOME, SELF-CARE Condition: Stable Patient Instructions: Swallowed Foreign Body, Adult, [id number] Josue Hart MD Nov 05, 2019 07:33
== END 2019-11-03 22:10 | disposition home or self-care (01) ==
LOC: EMR 20:41
DX: R09.89 Other specified symptoms and signs involving the circulatory and respiratory systems (principal)
CPT/HCPCS: 70490; Z7502; 99284

== ENCOUNTER → 2019-11-14 | Emergency (ER) | payer MEDICAID ==
[~2019-11-14] VITALS: Ht 157.5 cm; Wt 72.6 kg
--- NOTE | 2019-11-14 18:40 | NUR ---
ED Nurse Note: Pt ambulated to ED c/o RT eye irritation x3 days. Reports redness, eye discharges, swelling, pain. Pt thinks an eyelash got into her eye. Pt is AOx4, calm and cooperative to care, no active discharge as of now. Visual acuity of 20/30 for bilateral eyes
[2019-11-14 18:46] VITALS: BP 129/85
[2019-11-14 18:56] VITALS: BP 128/84
--- NOTE | 2019-11-14 18:58 | Emergency Room Report ---
History of Present Illness General Chief Complaint: Eye Problems Source: Patient Present Illness HPI Disclaimer: Please note that this report is being documented using [employer] technology. This can lead to erroneous entry secondary to incorrect interpretation by the dictating instrument. HPI: This is a 43-year-old female presenting for evaluation of right eye irritation. She does not wear contact lenses. She reports 3 days of discomfort and slight foreign body sensation of the right eye. No trauma reported. Reports mild lacrimation and intermittent discharge. Denies pain with extraocular movements, changes in visual acuity, headaches, fever, chills, lid swelling. She reports tenderness over the upper lid on the right eye. She believes she had an eyelash stuck in her eye earlier this week. No symptoms in the left eye. 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 EOMI. PERRLA. Pupils 4 mm and reactive bilaterally. No pain with extraocular movement. No entrapment. Mild edema of the right upper lid and mild erythema near the hair follicles. Tenderness to palpation. No exudate. Lid eversion shows small nodule underneath the right eye upper lid. Mild scleral injection in the right eye, none on the left. Visual acuity: 20/30 OD, 20/30 OS. [place] lamp examination: No fluorescein uptake in the right eye, no abrasions, no ulcers, no dendrites, negative Devorah. No proptosis. Resp: Normal work of breathing Skin: Intact. No abrasions, laceration or rash over the exposed skin MSK: Normal tone and bulk. Moving all extremities. No obvious deformity. Neuro: Awake and alert. Mentating appropriately Medical Decision Making Diagnostic Impression: Primary Impression: Hordeolum externum of right eye ER Course Is a 43-year-old female presenting with several days of right eye discomfort. Differential includes was not limited to iritis, conjunctivitis, hordeolum, chalazion. Clinically the patient shows no signs of pre-or post septal cellulitis. There is tenderness and a possible early nodule over the right upper lid consistent most with hordeolum. No evidence of corneal abrasion, ulcer, visual acuity intact. Otherwise well-appearing, afebrile and nontoxic- appearing. Patient instructed on performing warm compresses, NSAIDs for pain discomfort. She will return to the emergency department new or worsening symptoms. She understands and agrees with this treatment plan. Last Vital Signs Date Time Temp Pulse Resp B/P (MAP) Pulse Ox O2 Delivery O2 Flow Rate FiO2 11/14/19 18:46 97.9 19 129/85 98 Room Air 11/14/19 18:32 62 Disposition: HOME, SELF-CARE Condition: Stable Referrals: [facility] Patient Instructions: Olya Additional Instructions: Apply warm compresses to the right eye to encourage drainage of the start or diffusely lid swelling, redness, puffiness of the eye, pain with eye movements, fevers or severe headaches return to the emergency department for reevaluation Harrison Frazier MD Nov 14, 2019 18:58
== END | disposition home or self-care (01) ==
LOC: EMR 18:50
DX: H00.011 Hordeolum externum right upper eyelid (principal)
CPT/HCPCS: 99281

== ENCOUNTER 2019-11-15 21:30 | Emergency (ER) | payer MEDICAID ==
--- NOTE | 2019-11-15 21:40 | NUR ---
Nurse Note: Pt decided to leave without being seen by MD.
--- NOTE | 2019-11-16 02:26 | Emergency Room Report ---
Medical Decision Making Diagnostic Impression: Primary Impression: LWBS ER Course Patient left without being seen. Disposition: LEFT W/OUT BEING SEEN Condition: Stable Referrals: [facility] ([facility]P) Soham Pitt M.D. Nov 16, 2019 02:26
== END 2019-11-15 21:40 | disposition left against medical advice (07) ==
LOC: EMR 21:40
DX: Z53.21 Procedure and treatment not carried out due to patient leaving prior to being seen by health care provider (principal)

== ENCOUNTER 2019-12-16 16:10 | Emergency (ER) | payer MEDICAID ==
[~2019-12-16] VITALS: Ht 157.5 cm; Wt 68.0 kg
--- NOTE | 2019-12-16 16:24 | Emergency Room Report ---
History of Present Illness General Chief Complaint: Chest Pain Source: Patient Present Illness HPI 43-year-old female with no relevant past medical history here with chest tightness and discomfort for several hours. Patient says that she has been emotionally distressed today because it is the 2-year anniversary of her son's unexpected . Says "I feel Lightheaded but I Cannot Breathe." Patient Has Normal Vital Signs. No Family History of Early Cardiac Disease. Denies Fevers, Chills, Palpitations, Dysuria, Back Pain, Abdominal Pain, Nausea, Vomiting, Diaphoresis.. Says the Tightness in Her Chest Is in the Substernal Region and Does Not Otherwise Radiate. Allergies: Coded Allergies: No Known Allergies (Unverified , 11/07/18) COVID-19 Screening Contact w/high risk pt: No Experienced COVID-19 symptoms?: No COVID-19 Testing performed CORROSION CONTROL FITTER: No Patient History Last Menstrual Period: now Now: No Nursing Documentation-[facility] Past Medical History: No Stated History Review of Systems All Other Systems: negative except mentioned in HPI Physical Exam Vital Signs Date Time Temp Pulse Resp B/P (MAP) Pulse Ox O2 Delivery O2 Flow Rate FiO2 12/16/19 16:14 98.4 62 20 115/84 (94) 96 Room Air Sp02 EP Interpretation: reviewed, normal General Appearance: alert, GCS 15, non-toxic, mild distress, other - Tearful during examination Head: normocephalic, atraumatic Eyes: bilateral eye normal inspection, bilateral eye PERRL ENT: hearing grossly normal, normal pharynx, no angioedema, normal voice Neck: full range of motion, supple/symm/no masses Respiratory: chest non-tender, lungs clear, normal breath sounds, speaking full sentences Cardiovascular #1: regular rate, rhythm, no edema Cardiovascular #2: 2+ carotid (R), 2+ carotid (L), 2+ radial (R), 2+ radial (L), 2+ dorsalis pedis (R), 2+ dorsalis pedis (L) Gastrointestinal: normal bowel sounds, non tender, soft, non-distended, no guarding, no rebound Rectal: deferred Genitourinary: normal inspection, no CVA tenderness Musculoskeletal: back normal, normal range of motion, gait/station normal, non- tender Neurologic: alert, motor strength/tone normal, oriented x3, sensory intact, responsive, speech normal Psychiatric: judgement/insight normal, memory normal, mood/affect normal, no suicidal/homicidal ideation Lymphatic: no adenopathy Medical Decision Making Diagnostic Impression: Primary Impression: Anxiety Additional Impression: Chest pain ER Course ddx: ACS, dissection, PE, PTX, pericarditis, myocarditis, musculoskeletal, JULITO D/GI conditions, anxiety EKG: NSR, no ischemia, intervals WNL. No ectopy. Rate 67 bpm Rhythm strip: patient monitored for arrhythmias - no malignant dysrhythmias, runs of PVCs, nor pauses noted Chest x-ray: Indication chest pain: No consolidation. No pulmonary vascular congestion. Normal heart borders. No free air under the diaphragm. no infiltrate/effusion. Mediastinum within normal limits Procedure: XRAY Chest 1v Indication: Chest pain Technique: One view of the chest Comparison: 03/27/2016 Findings: Lungs and pleural spaces are clear. Heart size is normal. No significant change Impression: No acute process 43-year-old female here with shortness of breath for several hours. Patient was tearful on arrival to the emergency department. She was signed over the unexpected of her son that occurred 2 years earlier. She was in no acute distress and was hemodynamically stable. She was given 1 mg of Ativan p.o. with some resolution of her symptoms. Given a prescription for several days of Ativan. CBC, CMP, troponin unremarkable. Chest x-ray unremarkable as well. EKG normal. Heart score 0. PERC negative. Denied homicidal ideation, suicidal ideation, hallucinations. Patient will follow up with a primary care provider. Discharged in stable condition. Last Vital Signs Date Time Temp Pulse Resp B/P (MAP) Pulse Ox O2 Delivery O2 Flow Rate FiO2 12/16/19 16:14 98.4 62 20 115/84 (94) 96 Room Air Scripts Lorazepam* (ATIVAN*) 1 Mg Tablet 1 MG ORAL BEDTIME, #5 TAB Prov: Soham Pitt M.D. 12/16/19 Soham Pitt M.D. Dec 16, 2019 16:24
[2019-12-16] MEDS ORDERED: LORazepam 1mg tab ORAL ONE (16:30)
[2019-12-16] MEDS ORDERED: ATIVAN1 MG ORAL (16:31)
[2019-12-16 16:51] LABS: BASOPHILS % (AUTO) 1.5 % (0.0-2.0); EOSINOPHILS % (AUTO) 7.4 % (0.0-3.0); HEMATOCRIT 43.2 % (37.0-47.0); HEMOGLOBIN 14.9 G/DL (12.0-16.0); LYMPHOCYTES % (AUTO) 41.9 % (20.0-45.0); MEAN CORPUSCULAR VOLUME 95 FL (80-99); MONOCYTES % (AUTO) 6.7 % (1.0-10.0); NEUTROPHILS % (AUTO) 42.5 % (45.0-75.0); PLATELET COUNT 359 K/UL (150-450); RED BLOOD COUNT 4.54 M/UL (4.20-5.40); RED CELL DISTRIBUTION WIDTH 12.3 % (11.6-14.8); WHITE BLOOD COUNT 5.7 K/UL (4.8-10.8)
[2019-12-16 17:01] VITALS: BP 113/81
[2019-12-16 17:01] LABS: CALCIUM 8.8 MG/DL (8.5-10.1); CREATININE 1.2 MG/DL (0.55-1.30); POTASSIUM 4.5 MMOL/L (3.5-5.1)
--- NOTE | 2019-12-16 17:02 | Diagnostic Imaging Report ---
Indication: Chest pain Technique: One view of the chest Comparison: 03/27/2016 Findings: Lungs and pleural spaces are clear. Heart size is normal. No significant change Impression: No acute process
[2019-12-16 17:06] LABS: ALBUMIN 3.5 G/DL (3.4-5.0); ALBUMIN/GLOBULIN RATIO 0.9 (1.0-2.7); BILIRUBIN,TOTAL 0.4 MG/DL (0.2-1.0)
[2019-12-16 17:38] VITALS: BP 128/79
--- NOTE | 2019-12-17 14:37 | Cardiology Report ---
APPROVED REPORT EKG Measurement Heart [id number] <Conclusion> Normal sinus rhythm Normal ECG
== END 2019-12-16 18:06 | disposition home or self-care (01) ==
LOC: EMR 16:40
DX: F41.9 Anxiety disorder, unspecified (principal); R07.89 Other chest pain
CPT/HCPCS: 36415; 71045; 80053; 84484; 85025; 93005; Z7502; 99283

== ENCOUNTER 2019-12-29 12:58 | Emergency (ER) | payer MEDICAID ==
[~2019-12-29] VITALS: Ht 157.5 cm; Wt 72.1 kg
[~2019-12-29 12:58] MED LIST changes: +ATIVAN1 MG ORAL
--- NOTE | 2019-12-29 13:15 | NUR ---
ED Nurse Note: Patient from home walked in to ER due to left eye irritation since this morning. Patient presented with strong smell of alcohol
--- NOTE | 2019-12-29 13:23 | Emergency Room Report ---
History of Present Illness General Chief Complaint: Eye Problems Source: Patient Present Illness HPI 44-year-old female with no known significant past history here complaining of left eye irritation x1 day. Complains of photophobia, denies glasses. Reports that the irritation started after she scratched her vaginal area and scratched her eyelid. Denies cough and congestion. Denies eye discharge. Denies trauma to the eye. Denies . Denies headache and dizziness Allergies: Coded Allergies: No Known Allergies (Unverified , 11/07/18) COVID-19 Screening Contact w/high risk pt: No Experienced COVID-19 symptoms?: No COVID-[address] SUPERINTENDENT: No Patient History Past Medical History: see triage record Past Surgical History: none Pertinent Family History: none Last Menstrual Period: 2 weeks ago Now: No Immunizations: UTD Reviewed Nursing Documentation: PMH: Agreed; PSxH: Agreed Nursing Documentation-PMH Past Medical History: No Stated History Review of Systems All Other Systems: negative except mentioned in HPI Physical Exam Vital Signs Date Time Temp Pulse Resp B/P (MAP) Pulse Ox O2 Delivery O2 Flow Rate FiO2 12/29/19 13:14 99.0 71 15 114/75 (88) 96 Room Air Sp02 EP Interpretation: reviewed, normal General Appearance: no apparent distress, alert, GCS 15, non-toxic Head: normocephalic, atraumatic Eyes: left eye other - Chalazion left upper eyelid ENT: hearing grossly normal, normal pharynx, no angioedema, normal voice Neck: full range of motion, supple/symm/no masses Respiratory: chest non-tender, lungs clear, normal breath sounds, speaking full sentences Cardiovascular #1: regular rate, rhythm, no edema Cardiovascular #2: 2+ carotid (R), 2+ carotid (L), 2+ radial (R), 2+ radial (L), 2+ dorsalis pedis (R), 2+ dorsalis pedis (L) Gastrointestinal: soft Musculoskeletal: back normal, gait/station normal Neurologic: alert, motor strength/tone normal, oriented x3, sensory intact, responsive, speech normal Psychiatric: judgement/insight normal, memory normal, mood/affect normal, no suicidal/homicidal ideation Skin: no rash Lymphatic: no adenopathy Medical Decision Making Diagnostic Impression: Primary Impression: Chalazion Additional Impression: Bacterial conjunctivitis ER Course 44-year-old female with no known significant past history here complaining of left eye irritation x1 day. Complains of photophobia, denies glasses. Reports that the irritation started after she scratched her vaginal area and scratched her eyelid. Denies cough and congestion. Denies eye discharge. Denies trauma to the eye. Denies . Denies headache and dizziness Ddx considered but are not limited to: bacterial conjunctivitis, allergic conjunctivitis, viral conjunctivitis, periorbital cellulitis, global trauma Vital signs: are WNL, pt. is afebrile H&PE are most consistent with: Chalazion left lower leg, bacterial conjunctivitis ORDERS: Ofloxacin ophthalmic, erythromycin ointment ED INTERVENTIONS: None required at this time. DISCHARGE: At this time pt. is stable for d/c to home. Will provide printed patient care instructions, and any necessary prescriptions. Care plan and follow up instructions have been discussed with the patient prior to discharge. Take medication as directed, follow primary care provider affected area, if worsening symptoms return to the emergency room Last Vital Signs Date Time Temp Pulse Resp B/P (MAP) Pulse Ox O2 Delivery O2 Flow Rate FiO2 12/29/19 13:14 99.0 71 15 114/75 (88) 96 Room Air Disposition: HOME, SELF-CARE Condition: Stable Scripts Erythromycin Base (ERYTHROMYCIN*) 3.5 Gm Oint...g. 1 APPLIC LEFT EYE Q6HR, #3.5 GM 0 Refills Prov: Maximo Farnsworth 12/29/19 Ofloxacin (Ofloxacin) 5 Ml Drops 2 DROP OP Q6HR for 7 Days, #5 ML Prov: Maximo Farnsworth 12/29/19 Patient Instructions: Bacterial Conjunctivitis, [id number], Chalazion Additional Instructions: Take medication as directed, change of pillowcase, avoid using the same mascara, wear protective sunglasses, follow with pattern mechanic, if worsening symptoms return to the emergency room Maximo Farnsworth Dec 29, 2019 13:23
[2019-12-29] MEDS ORDERED: ERYTHROMYCIN3.5 GM LEFT EYE (13:24)
[2019-12-29] MEDS ORDERED: OFLOXACIN10 ML OP (13:24)
--- NOTE | 2019-12-29 13:30 | NUR ---
ED Nurse Note: Pt cleared by health care Provider for discharge. DC instructions/prescription was given and explained to pt and verbalized understanding of teachings. All medical deviecs such as ID band removed. Pt is AAO x4, ambulatory and left with all personal belongings.
[2019-12-29 13:40] VITALS: BP 114/75
== END 2019-12-29 13:30 | disposition home or self-care (01) ==
LOC: EMR 13:20
DX: H00.14 Chalazion left upper eyelid (principal); H10.9 Unspecified conjunctivitis
CPT/HCPCS: 99282

== ENCOUNTER 2020-01-12 16:20 | Emergency (ER) | payer MEDICAID ==
[~2020-01-12] VITALS: Ht 157.5 cm; Wt 73.9 kg
[~2020-01-12 16:20] MED LIST changes: +ERYTHROMYCIN3.5 GM LEFT EYE; +OFLOXACIN10 ML OP
[2020-01-12 16:30] VITALS: BP 118/68
[2020-01-12] MEDS ORDERED: Omnipaque-300 100ml vial INJ PRN (16:30)
--- NOTE | 2020-01-12 16:30 | NUR ---
ED Nurse Note: Pt walked in from home c/o right lower abd pain x 3 weeks. Pt has been diagnosed with ovarian cysts 3 weeks ago, but the pain has increased. Pt c/o N/V. Respirations even and unlabored on room air. Vitals stable as documented. A+Ox4, speaking in complete sentences.
[2020-01-12] MEDS ORDERED: Ketorolac 30mg Inj IV ONE (16:45)
[2020-01-12 17:16] LABS: APPEARANCE,URINE SLIGHTLY CLOUDY; BILIRUBIN, URINE NEGATIVE (NEGATIVE); GLUCOSE, URINE (UA) NEGATIVE (NEGATIVE); KETONES,URINE NEGATIVE (NEGATIVE); LEUKOCYTE ESTERASE ,URINE NEGATIVE (NEGATIVE); NITRITE,URINE NEGATIVE (NEGATIVE); PH,URINE 6 (4.5-8.0); PROTEIN,URINE NEGATIVE (NEGATIVE); UROBILINOGEN,URINE 1 MG/DL (0.0-1.0)
[2020-01-12 17:27] LABS: COLOR,URINE YELLOW
[2020-01-12 17:32] LABS: BASOPHILS % (AUTO) 2.4 % (0.0-2.0); EOSINOPHILS % (AUTO) 7.9 % (0.0-3.0); HEMATOCRIT 40.6 % (37.0-47.0); HEMOGLOBIN 13.7 G/DL (12.0-16.0); LYMPHOCYTES % (AUTO) 36.9 % (20.0-45.0); MEAN CORPUSCULAR VOLUME 93 FL (80-99); MONOCYTES % (AUTO) 8.6 % (1.0-10.0); NEUTROPHILS % (AUTO) 44.2 % (45.0-75.0); PLATELET COUNT 376 K/UL (150-450); RED BLOOD COUNT 4.37 M/UL (4.20-5.40); WHITE BLOOD COUNT 6.5 K/UL (4.8-10.8)
[2020-01-12 17:33] LABS: ANION GAP 6 mmol/L (5-15); BLOOD UREA NITROGEN 12 mg/dL (7-18); CARBON DIOXIDE 29 MMOL/L (21-32); CHLORIDE 107 MMOL/L (98-107); CREATININE 1.1 MG/DL (0.55-1.30); POTASSIUM 3.8 MMOL/L (3.5-5.1); SODIUM 142 MMOL/L (136-145)
[2020-01-12 17:38] LABS: ALANINE AMINOTRANSFERASE 26 U/L (12-78); ALBUMIN 3.4 G/DL (3.4-5.0); ALBUMIN/GLOBULIN RATIO 0.9 (1.0-2.7); ALKALINE PHOSPHATASE 58 U/L (46-116); ASPARTATE AMINO TRANSFERASE 17 U/L (15-37); BILIRUBIN,TOTAL 0.5 MG/DL (0.2-1.0)
--- NOTE | 2020-01-12 17:48 | NUR ---
ED Nurse Note: pt in radiology
--- NOTE | 2020-01-12 17:58 | NUR ---
ED Nurse Note: pt back from radiology. no acute distress noted.
--- NOTE | 2020-01-12 18:29 | Diagnostic Imaging Report ---
EXAM: CT Abdomen and Pelvis With Intravenous Contrast CLINICAL HISTORY: PAIN TECHNIQUE: Axial computed tomography images of the abdomen and pelvis with intravenous contrast. CTDI is 7.3 mGy and DLP is 372.8 mGy-cm. One or more of the following dose reduction techniques were used: automated exposure control, adjustment of the mA and/or kV according to patient size, use of iterative reconstruction technique. COMPARISON: No relevant prior studies available. FINDINGS: Lung bases: Unremarkable. ABDOMEN: Liver: Unremarkable. Gallbladder and bile ducts: Unremarkable. Pancreas: Unremarkable. Spleen: Unremarkable. Adrenals: Unremarkable. Kidneys and ureters: Nonobstructing nephrolithiasis in the kidneys bilaterally. No hydronephrosis or obstructive uropathy. Stomach and bowel: Unremarkable. PELVIS: Appendix: Normal appendix. Bladder: Unremarkable. Reproductive: IUD within the uterus. No adnexal lesion. ABDOMEN and PELVIS: Intraperitoneal space: Unremarkable. No free air. No significant fluid collection. Bones/joints: No acute fracture. Soft tissues: Small fat-containing right inguinal hernia. Vasculature: Unremarkable. Lymph nodes: Unremarkable. IMPRESSION: 1. Normal appendix. No acute abnormality within the abdomen or pelvis. 2. Nonobstructing nephrolithiasis bilaterally. 3. Small fat-containing right inguinal hernia.
[2020-01-12 18:30] VITALS: BP 126/72
--- NOTE | 2020-01-12 18:31 | Emergency Room Report ---
History of Present Illness General Chief Complaint: Abdominal Pain Source: Patient Present Illness HPI 44-year-old female with no known past medical history here complaining of few months of right lower quadrant abdominal pain worsening x1 week and few bouts of nonbloody emesis. Reports that was diagnosed with uterine fibroids and ovarian cyst not too long ago. Also complains of foul odorous vaginal discharge reports that is sexually active. Denies dysuria urinary frequency urgency. Denies diffuse abdominal pain, diarrhea, cough or congestion. Denies . Has not taken medication for symptom relief. Allergies: Coded Allergies: No Known Allergies (Unverified , 11/07/18) COVID-19 Screening Contact w/high risk pt: No Experienced COVID-19 symptoms?: No COVID-19 Testing performed SHIP CEILER: No Patient History Past Medical History: see triage record Past Surgical History: none Pertinent Family History: none Now: No Immunizations: UTD Reviewed Nursing Documentation: PMH: Agreed; PSxH: Agreed Nursing Documentation-PMH Past Medical History: No Stated History Review of Systems All Other Systems: negative except mentioned in HPI Physical Exam Vital Signs Date Time Temp Pulse Resp B/P (MAP) Pulse Ox O2 Delivery O2 Flow Rate FiO2 01/12/20 16:27 98.2 73 16 111/74 (86) 98 Room Air Sp02 EP Interpretation: reviewed, normal General Appearance: no apparent distress, alert, GCS 15, non-toxic Head: normocephalic, atraumatic Eyes: bilateral eye normal inspection, bilateral eye PERRL ENT: hearing grossly normal, normal pharynx, no angioedema, normal voice Neck: full range of motion, supple/symm/no masses Respiratory: chest non-tender, lungs clear, normal breath sounds, speaking full sentences Cardiovascular #1: regular rate, rhythm, no edema Gastrointestinal: normal bowel sounds, non tender, soft, no mass, no organomegaly, no peritonitis, no bruit, non-distended, no guarding, no hernia, no pulsatile mass, no rebound Rectal: deferred Genitourinary: no CVA tenderness Musculoskeletal: back normal Neurologic: alert, motor strength/tone normal, oriented x3, sensory intact, responsive, speech normal Psychiatric: judgement/insight normal, memory normal, mood/affect normal, no suicidal/homicidal ideation Skin: no rash Lymphatic: no adenopathy Medical Decision Making PA Attestation All my diagnosis and treatment plans were reviewed ad discussed with my supervising physician Dr. Hart Diagnostic Impression: Primary Impression: Vaginitis Additional Impressions: Renal stone Multiple substance abuse ER Course 44-year-old female with no known past medical history here complaining of few months of right lower quadrant abdominal pain worsening x1 week and few bouts of nonbloody emesis. Reports that was diagnosed with uterine fibroids and ovarian cyst not too long ago. Also complains of foul odorous vaginal discharge reports that is sexually active. Denies dysuria urinary frequency urgency. Denies diffuse abdominal pain, diarrhea, cough or congestion. Denies . Has not taken medication for symptom relief. Ddx considered but are not limited to: appendicitis, cholecystis, gastritis, gastroenteritis, UTI, pyelonephritis, SBO, diverticulitis, ovarian cyst rupture, uterine fibroids, ectopic , PID Vital signs: are WNL, pt. is afebrile H&PE are most consistent with: Possible PID, vaginitis, renal stone nonobstructive, multi substance abuse ORDERS: abdominal CT, abdominal pain set, azithromycin, Flagyl ED INTERVENTIONS: Rocephin, Zofran, Toradol, NS bolus DISCHARGE: At this time pt. is stable for d/c to home. Will provide printed patient care instructions, and any necessary prescriptions. Care plan and follow up instructions have been discussed with the patient prior to discharge. Take medication as directed, follow primary care provider, followed up by leather production worker, if worsening symptom return to the emergency room. Also avoid using CT/MRI/US Diagnostic Results CT/MRI/US Diagnostic Results : Imaging Test Ordered: CT abdomen pelvis with contrast Impression FINDINGS: Lung bases: Unremarkable. ABDOMEN: Liver: Unremarkable. Gallbladder and bile ducts: Unremarkable. Pancreas: Unremarkable. Spleen: Unremarkable. Adrenals: Unremarkable. Kidneys and ureters: Nonobstructing nephrolithiasis in the kidneys bilaterally. No hydronephrosis or obstructive uropathy. Stomach and bowel: Unremarkable. PELVIS: Appendix: Normal appendix. Bladder: Unremarkable. Reproductive: IUD within the uterus. No adnexal lesion. ABDOMEN and PELVIS: Intraperitoneal space: Unremarkable. No free air. No significant fluid collection. Bones/joints: No acute fracture. Soft tissues: Small fat-containing right inguinal hernia. Vasculature: Unremarkable. Lymph nodes: Unremarkable. IMPRESSION: 1. Normal appendix. No acute abnormality within the abdomen or pelvis. 2. Nonobstructing nephrolithiasis bilaterally. 3. Small fat-containing right inguinal hernia. Last Vital Signs Date Time Temp Pulse Resp B/P (MAP) Pulse Ox O2 Delivery O2 Flow Rate FiO2 01/12/20 16:30 79 18 Room Air 01/12/20 16:30 98.6 118/68 99 Disposition: HOME, SELF-CARE Condition: Stable Scripts Metronidazole* (FLAGYL*) 500 Mg Tablet 500 MG ORAL BID for 7 Days, #14 TAB Prov: Maximo Farnsworth 01/12/20 Azithromycin (AZITHROMYCIN) 500 Mg Tablet 2 TAB ORAL DAILY for 1 Day, #2 TAB Prov: Maximo Farnsworth 01/12/20 Referrals: [facility]ERR[facility] (PCP) Patient Instructions: Abdominal Pain, Adult, Vaginitis, [id number] Additional Instructions: Take medication as directed, follow primary care provider, if worsening symptoms return to the emergency room Maximo Farnsworth Jan 12, 2020 18:31
[2020-01-12] MEDS ORDERED: AZITHROMYCIN500 MG ORAL (18:37)
[2020-01-12] MEDS ORDERED: METRONIDAZOLE500 MG ORAL (18:37)
[2020-01-12] MEDS ORDERED: cefTRIAXone 1 GM in NS 55 ML IVPB ONE (18:45)
[2020-01-12 19:19] VITALS: BP 131/79
--- NOTE | 2020-01-12 19:19 | NUR ---
HAND-OFF: Report given to KRISTY Blood. Pt in stable condition; plan of care endorsed.
== END 2020-01-12 19:19 | disposition home or self-care (01) ==
LOC: EMR 17:09
DX: N20.0 Calculus of kidney (principal); N76.0 Acute vaginitis; F19.10 Other psychoactive substance abuse, uncomplicated; Z97.5 Presence of (intrauterine) contraceptive device; K40.90 Unilateral inguinal hernia, without obstruction or gangrene, not specified as recurrent
CPT/HCPCS: 36415; 74177; 80053; 80307; 81003; 81025; 85025; 85610; 85730; 87086; 96361; 96365; 96375; J0696; J1885; J2405; J7030; Q9965; Z7502; 99284